=== PATIENT | male | born 1955 | race Asian ===

== ENCOUNTER 2018-09-07 10:37 | Emergency (ER) | payer OTHER, MEDICAID ==
[~2018-09-07] VITALS: Ht 182.9 cm; Wt 71.7 kg
[2018-09-07 10:40] VITALS: Ht 182.9 cm; Wt 71.7 kg
[2018-09-07 14:09] VITALS: BP 110/71
== END 2018-09-07 14:09 | disposition home or self-care (01) ==
LOC: ED 10:37
DX: S39.012A Strain of muscle, fascia and tendon of lower back, initial encounter (principal); W18.39XA Other fall on same level, initial encounter; Y93.89 Activity, other specified; Y92.89 Other specified places as the place of occurrence of the external cause; Y99.8 Other external cause status
CPT/HCPCS: J1885